=== PATIENT | male | born 1975 | race Caucasian/White ===

== ENCOUNTER 2020-06-09 12:40 | Outpatient (CLI) | payer OTHER ==
--- NOTE | 2020-06-09 15:57 | CT ---
CT BRAIN NONCONTRAST: DATE: 06/09/2020. HISTORY: A 45-year-old male with subdural hematoma, followup. ICD-10: S06.5X0A. Dr. White texted Dr. Rothman regarding the findings, at 2:48 p.m. 06/09/2020. Dr. Rothman immediatel y replied with text message acknowledgment, at 2:48 p.m. 06/09/2020. COMPARISON: None available. FINDINGS: There is a right frontoparietal subdural hematoma with density that is higher than CSF, and lower tita n brain parenchyma. It measures approximately 20 mm in transverse diameter measured at centrum semio rizwan (axial image 24 of 36, series 3). At the anterior portion of the subdural hematoma, there is a belia hole just anterior to the coronal s uture, with overlying skin mariola. The rest of the calvarium is intact. The subdural hematoma exerts mass effect upon the right cerebral hemisphere, effacing right upper cer ebral sulcal markings, and causing [id number] midline shift of the septum pellucidum a distance of approximately 9 mm. Mild distortion and extrinsic compression of the right lateral ventricle. No o bstructive hydrocephalus. No acute intraaxial hemorrhage. IMPRESSION: Chronic/late subacute right frontoparietal subdural hematoma causing mass effect upon the right cereb ral hemisphere, with 9 mm of subfalcine herniation. CODE JAEMS JN R POS: TATY
== END 2020-06-09 12:41 | disposition home or self-care (01) ==
LOC: TBSIIMAG 12:40
PROVIDERS: ATTEND Neurological Surgery
DX: S06.5X9D Traumatic subdural hemorrhage with loss of consciousness of unspecified duration, subsequent encounter (principal); G93.5 Compression of brain
CPT/HCPCS: 70450

== ENCOUNTER 2020-07-04 12:38 | Outpatient (CLI) | payer OTHER ==
--- NOTE | 2020-07-04 14:36 | CT ---
CT HEAD WITHOUT CONTRAST: Date: 07/04/2020 INDICATION: Follow-up subdural hematoma. COMPARISON: Head CT dated 06/09/2020. FINDINGS: There is a small residual right subdural hematoma which is mixed density. It measures approximately 7 -8 mm thickness today. It is seen along the right frontal convexity and produces mild effacement of t he right frontal cortex. Slight midline shift at the septum pellucidum measured at 3.0 mm. Bur holes in the right frontal bone again noted. IMPRESSION: Small residual right subdural hematoma with slight midline shift at the septum pellucidum. POS: AGW
== END 2020-07-04 12:39 | disposition home or self-care (01) ==
LOC: TBSIIMAG 12:38
PROVIDERS: ATTEND Neurological Surgery
DX: I62.03 Nontraumatic chronic subdural hemorrhage (principal)
CPT/HCPCS: 70450